=== PATIENT | male | born 1980 | race Caucasian/White ===

== ENCOUNTER 2017-11-08 18:51 | Emergency (ER) | payer MEDICAID ==
[~2017-11-08] VITALS: Ht 170.2 cm; Wt 83.2 kg
[~2017-11-08 18:51] MED LIST: NOCURR
[2017-11-08] MEDS ORDERED: BACITRACIN 0.9 GM PACKET OINTMENT TP ONE (20:00)
[2017-11-08] MEDS ORDERED: LIDOCAINE HCL/PF 1% 5 ML VIAL INJ ONE (20:00)
[2017-11-08 20:42] VITALS: BP 138/94
== END 2017-11-08 21:03 | disposition home or self-care (01) ==
LOC: EMS 18:53
DX: S01.112A Laceration without foreign body of left eyelid and periocular area, initial encounter (principal); F19.90 Other psychoactive substance use, unspecified, uncomplicated; W22.8XXA Striking against or struck by other objects, initial encounter; Y93.G3 Activity, cooking and baking; Y92.098 Other place in other non-institutional residence as the place of occurrence of the external cause; Y99.8 Other external cause status
CPT/HCPCS: 12013; 99283; J3490